=== PATIENT | female | born 1935 | race Caucasian/White ===

== ENCOUNTER → 2016-08-17 | Outpatient (CLI) | payer OTHER | LOC: BHFA 09:00 | PROVIDERS: ATTEND Internal Medicine Cardiovascular Disease | DX: R94.31 Abnormal electrocardiogram [ECG] [EKG] (principal); I25.10 Atherosclerotic heart disease of native coronary artery without angina pectoris; R06.09 Other forms of dyspnea ==

== ENCOUNTER → 2016-08-23 | Outpatient (CLI) | payer OTHER | LOC: CIMAGING 09:28 | DX: Z12.31 Encounter for screening mammogram for malignant neoplasm of breast (principal); Z80.3 Family history of malignant neoplasm of breast | CPT/HCPCS: G0202 ==

== ENCOUNTER → 2016-08-25 | Outpatient (CLI) | payer OTHER | LOC: BHFA 09:30 | PROVIDERS: ATTEND Internal Medicine Cardiovascular Disease | DX: R94.31 Abnormal electrocardiogram [ECG] [EKG] (principal); R06.09 Other forms of dyspnea; I25.10 Atherosclerotic heart disease of native coronary artery without angina pectoris | CPT/HCPCS: 78452; 93017; A9500; J2785 ==

== ENCOUNTER 2016-09-27 09:13 | Day surgery (SDC) | payer OTHER ==
[2016-09-27] MEDS ORDERED: FAMOTIDINE 20 MG TAB PO ONE (09:14)
[2016-09-27] MEDS ORDERED: diphenhydrAMINE 25 MG CAP PO ONE (09:14)
[2016-09-27] MEDS ORDERED: ASPIRIN EC 325 MG TAB PO ONE (09:14)
[2016-09-27] MEDS ORDERED: NS 1,000 ML IV ONE (09:14)
[2016-09-27] MEDS ORDERED: DIAZEPAM 5 MG TAB PO ONE (09:14)
--- NOTE | 2016-09-27 09:36 | CPEKG ---
Heart Rate: 60 RR Interval: 1000 P-R Interval: 140 QRSD Interval: 86 QT Interval: 440 QTC Interval: 440 P [place]: 54 QRS [place]: 6 T Wave [place]: -26 EKG Severity - ABNORMAL ECG - EKG Impression: SINUS RHYTHM EKG Impression: CONSIDER INFERIOR INFARCT EKG Impression: BORDERLINE T ABNORMALITIES, ANTERIOR LEADS Electronically Signed By: Todd Amaya 27-Sep-2016 19:11:57
[2016-09-27] MEDS ORDERED: fentaNYL 100 MCG/2 ML INJ ONE (09:56)
[2016-09-27] MEDS ORDERED: LIDOCAINE 1% 30 ML SDV ONE (09:56)
[2016-09-27] MEDS ORDERED: MIDAZOLAM 2 MG/2 ML VIAL ONE (09:56)
[2016-09-27] MEDS ORDERED: HEPARIN 10,000 UNIT/10 ML MDV ONE (09:56)
[2016-09-27] MEDS ORDERED: VERAPAMIL 5 MG/2 ML VIAL ONE (09:56)
[2016-09-27] MEDS ORDERED: IOPAMIDOL (ISOVUE-370) 150 ML BTL IV ONE (09:57)
[2016-09-27 10:07] LABS: % IMMATURE GRANULYOCYTES 0.2 % (0.0-1.1); ABSOLUTE IMMATURE GRANULOCYTES 0.01 10^3/uL (0.00-0.10); ADD DIFF? NO; ADD MORPH? NO; ADD SCAN? NO; ATYPICAL LYMPHOCYTE FLAG 0 (0-99); FRAGMENT RBC FLAG 10 (0-99); HEMATOCRIT 46.6 % (38.0-47.0); LEFT SHIFT FLG 0 (0-99); LIPEMIA HEMOLYSIS FLAG 90 (0-99); MEAN CELL HEMOGLOBIN CONCENTR. 34.3 g/dL (32.4-36.7); MEAN CELL VOLUME 93.2 fL (81.5-99.8); MEAN PLATELET VOLUME 10.2 fL (8.7-11.7); PLATELET CLUMPS FLAG 0 (0-99); PLATELET COUNT 191 10^3/uL (150-400); RED CELL DISTRIBUTION WIDTH 13.2 % (11.5-15.2)
[2016-09-27 10:10] LABS: INR 0.91 (0.83-1.16); PROTIME(PATIENT) 12.1 SEC (12.0-15.0)
[2016-09-27 10:31] LABS: ANION GAP 9 mEq/L (8-16); CALCIUM 9.5 mg/dL (8.5-10.4); CARBON DIOXIDE 27 mEq/l (22-31); CHLORIDE 104 mEq/L (97-110); CHOLESTEROL 218 mg/dL (140-220); CHOLESTEROL/HDL RATIO 2.04 RATIO (1.00-4.44); CREATININE 0.6 mg/dL (0.6-1.0); GLOMERULAR FILTRATION RATE > 60; GLUCOSE 100 mg/dL (70-100); HIGH DENSITY LIPOPROTEIN 107 mg/dL (40-85); LDL/HDL RATIO 0.86 RATIO (1.00-3.22); LOW DENSITY LIPOPROTEIN 92 mg/dL (80-100); MAGNESIUM 2.1 mg/dL (1.6-2.3); NON-HIGH DENSITY LIPOPROTEIN 111 mg/dL (90-129); POTASSIUM 4.2 mEq/L (3.5-5.2); SODIUM 140 mEq/L (134-144); TRIGLYCERIDE 95 mg/dL (35-135); VERY LOW DENSITY LIPOPROTEINS 19 mg/dL (8-25)
--- NOTE | 2016-09-27 11:52 | PDDXCAT ---
Diagnostic Cath Note - . Date: 09/27/16 Intervention: none *Procedure 1. selective coronary angiography 2. left heart catheterization 3. left ventriculogram Indication: CCS Class III angina pectoris, low-risk nuclear stress test with abnormal stress EKG, abnormal resting EKG, progressive dyspnea on exertion consistent with NYHA III symptoms. Access: Left radial artery (a plethysmography trace assisted Nigel's Test was used to document dual artery supply to the hand and index finger prior to access ). *Materials Left Heart Cath size: 5F Left Heart Cath materials: JL3.5, JR4.0, pigtail, short J-glide *Findings-Selective Coronary Angiography LM: The left main is ~5 mm in size and bifurcates into an LAD and circumflex system. There is no significant disease identified. LAD: The proximal LAD is ~3 mm in size with mild luminal irregularities consistent with atherosclerosis. There is TORRES III flow throughout. LCX: There proximal left circumflex is ~3 mm in size. There is no evidence of flow-limiting disease with TORRES III flow throughout. RCA: The proximal right coronary artery is ~3.5 mm in size and dominant (gives rise to PDA and PLV branches). There is a 30-40% ostial stenosis that is non- flow limiting. There is TORRES III flow throughout. The proximal portion is larger than the mid and distal artery and quickly tapers to a smaller size. *Findings-Left Heart Catheterization EDP: 25 mmHg LVEF: >75% AO: 120/61/87 mmHg LVG: There hyperdynamic LV systolic function with elevated ejection fraction without segmental wall motion abnormalities. The visualized portion of the thoracic aorta appears to be within normal limits in size without evidence of bennett dissection or aneurysm. *Summary Complications: None Estimated blood loss: <50ml Closure method: TR Band Assessment/Conclusion: 1. [place] vessel coronary artery disease that is non-flow limiting (maximal luminal stenosis of 30-40% in the ostial right coronary artery with TORRES III flow throughout). The patient's coronary artery disease should be managed medically. It is unlikely that [place] vessel coronary disease is significantly contributing to her dyspnea on exertion. 2. Hyperdynamic left ventricular systolic function and ejection fraction estimated to be >75%. 3. The patient had an episode of desaturation as low as 83% before the procedure and as low as 70% with conscious sedation. I would like her to have pulmonary evaluation including pulmonary CTA given the progressive dyspnea and periodic hypoxia at rest. Patient Problems: Problems Problem Status Onset Coronary artery disease Acute HTN (hypertension) Acute Hyperlipemia Acute - ICD10 Problem Qualifiers (1) Coronary artery disease Qualifiers: Coronary Disease-Associated Artery/Lesion type: [place] artery [place] vs. transplanted heart: [place] heart Associated angina: without angina Qualified Code(s): I25.10 - Atherosclerotic heart disease of [place] coronary artery without angina pectoris
[2016-09-27] MEDS ORDERED: IOPAMIDOL (ISOVUE 370) 100 ML BTL IV ONE (13:57)
[2016-09-27] MEDS ORDERED: fentaNYL 100 MCG/2 ML INJ IVP PRN (14:54)
== END 2016-09-27 20:37 | disposition home or self-care (01) ==
LOC: FCATH 09:13
PROVIDERS: ATTEND Internal Medicine Cardiovascular Disease
DX: I20.9 Angina pectoris, unspecified (principal); I10 Essential (primary) hypertension; G47.33 Obstructive sleep apnea (adult) (pediatric); E78.5 Hyperlipidemia, unspecified; Z86.73 Personal history of transient ischemic attack (TIA), and cerebral infarction without residual deficits
CPT/HCPCS: 71275; 93005; 93458; C1769; J1644; J2250; J3010; Q9967

== ENCOUNTER 2016-10-08 15:06 | Inpatient (IN) | payer OTHER ==
--- NOTE | 2016-10-08 15:19 | EDPHY ---
H & P Stated Complaint: tnigling to left side startedwith foot all gone HPI/ROS: CHIEF COMPLAINT: Tingling in left extremities and face HISTORY OF PRESENT ILLNESS: The patient is a 80 y/o female arriving with her complaining of four episodes of now resolved tingling in her left extremities, with the first episode occurring yesterday. In addition to CAD, hypertension, and emphysema, she has a history of a prior TIA two years ago that presented with right-sided facial paresthesias and difficulty walking. At that time she was hospitalized in underwent a full TIA evaluation. She recently underwent cardiac catheterization parentheses September 27, 2016) with a catheter placed in her left arm. No intervention was required. Yesterday she experienced two episodes of left foot tingling that progressed up to her left buttock, but quickly resolved. Twice today she developed the same symptoms in her left leg, but they then progressed through her left arm and the left side of her face. These episodes lasted about 1 minute and were not associated with headache, chest pain , worse than normal dyspnea, confusion, weakness, changes in vision, or changes in speech. She denies recent illness, vomiting, diarrhea, back pain, dysuria, abdominal pain, chest pain. She has no history of back injuries or prior back problems. She denies anticoagulant use. She denies recent trauma of any kind. She reports she is compliant with her medications. REVIEW OF SYSTEMS: A ten point review of systems was performed and is negative with the exception of the items mentioned in the HPI. Source: Patient Exam Limitations: No limitations - Personal History Current Tetanus/Diphtheria Vaccine: Yes Current Tetanus Diphtheria and Acellular Pertussis (TDAP): Yes - Medical/Surgical History PMH: PMH includes: 1. Coronary artery disease with non-flow limiting stenosis per cath 09/27/16 2. TIA - 2014 3. Emphysema requires home O2 - seen on chest CTA 09/27/16 4. Hypertension 5. Sleep apnea 6. Hysterectomy 7. Rotator cuff repair 8. Cataract surgery Prior medical records reviewed including admission 11/28/14 for TIA and cardiac cath report 09/27/16. Webmethods Architect: Dr. Monique Vazquez Asthma: No Hx Chronic Respiratory Disease: No Hx Diabetes: No Hx Cardiac Disease: No Hx Renal Disease: No Hx Cirrhosis: No Hx Alcoholism: No Hx HIV/AIDS: No Hx Splenectomy or Spleen Trauma: No Other PMH: 1. Coronary artery disease status post cardiac catheterization September 2016. 2. Hypertension. 3. Hyperlipidemia. 4. Sleep apnea. 5. COPD. 6. Hysterectomy. 7. Rotator cuff repair. 8. Cataract surgery - Social History Smoking Status: Never smoked Additional Social History: Former smoker. at bedside. - Physical Exam Exam: General Appearance: Alert. Vital signs reviewed. Blood pressure 157/89. Eyes: Pupils equal and round, no conjunctival injection, no discharge. Anicteric. ENT, Mouth: Mucous membranes are moist, no oropharyngeal erythema or edema. Neck: No lymphadenopathy, supple. No carotid bruits. Respiratory: Lungs are clear to auscultation; no wheezes, rales, or rhonchi. Cardiovascular: Regular rate and rhythm; no murmur, rub, or gallop. Gastrointestinal: Abdomen is soft and nontender, no masses or organomegaly, bowel sounds normal. Skin: Warm and dry, no rashes on exposed skin, normal color. Back: Nontender to palpation over the thoracolumbar spine. No CVAT. Extremities: No lower extremity edema, no calf tenderness or swelling. Neurological: Alert and oriented. Moving all four extremities easily and equally. Cranial nerves II through XII are examined and are intact with the exception of decreased hearing to finger rub in the right ear (visual acuity not tested). Strength is 5 over 5 bilaterally with testing of all major motor groups. Sensation is intact to light touch over all 4 extremities. Deep tendon reflexes are 2+ in the biceps bilaterally and 1+ in the knees bilaterally. [id number] is performed accurately. Psychiatric: Normal affect. Constitutional: Initial Vital Signs Temperature (C) 36.7 C 10/08/16 15:09 Heart Rate 68 10/08/16 15:09 Respiratory Rate 16 10/08/16 15:09 Blood Pressure 157/89 H 10/08/16 15:09 O2 Sat (%) 93 10/08/16 15:09 O2 Delivery Mode Room Air Allergies/Adverse Reactions: codeine Allergy (Verified 09/27/16 10:29) Vomiting/Nausea Home Medications: Medication Instructions Recorded Atorvastatin Calcium [Lipitor 40 40 mg PO DAILY 10/08/16 mg (*)] Clopidogrel Bisulfate [Plavix (*)] 75 mg PO DAILY 10/08/16 Herbals/Supplements -Info Only 1 ea PO DAILY 10/08/16 Hydrochlorothiazide [HCTZ (*)] 25 mg PO DAILY 10/08/16 Metoprolol Succinate Xr [Toprol Xl 12.5 mg PO DAILY 10/08/16 25 mg (*)] Multivitamins [Multivitamin (*)] 1 each PO DAILY 10/08/16 Naproxen Sodium [Aleve 220 MG (*)] 220 mg PO DAILY PRN 10/08/16 Medical Decision Making - Diagnostics Imaging Results: Imaging Impressions Head CT 10/08/16 15:39 Impression: 1. Minimal linear subarachnoid hemorrhage in the right frontoparietal convexity near the central sulcus without mass effect. 2. No midline shift or herniation. 3. Recommend MRI of the brain without and with contrast enhancement, if there is continued clinical concern. Findings and recommendations discussed with Emergency Department physician, TISH VARGAS at 16:31 hour, 10/08/2016. Final report concurs with initial preliminary interpretation. Imaging: Discussed imaging studies w/ call center professional Radiologist, I viewed and interpreted images myself ED Course/Re-evaluation: IV established. Labs drawn including CBC, CHEM. Head CT and EKG ordered. The 12 lead EKG was interpreted by myself. See hard copy and/or "tracemaster" electronic copy for interpretation. 1630: Dr. Mcintyre, radiologist, reports head CT shows small subarachnoid right cortical hemorrhage. Reassessed patient and discussed findings with her. She agrees with plan for admission. Brain MRI ordered. 1650: Spoke with hospitalist service. Dr. Pelaez accepts admission. 1657: Consulted with Dr. Montero, neurosurgery. He will review imaging and follow patient's admission as needed. 1705: Neurosurgery PA assessed patient with me in the ED. The patient is experiencing another episode of tingling in her left foot currently. Will admit to ICU, given stuttering and recurrent nature of her symptoms. She will be admitted to the ICU for blood pressure control and frequent neurologic monitoring. It is not clear what has caused this atraumatic subarachnoid hemorrhage. In the absence of Trauma other possibilities include aneurysmal bleed (unlikely in this location), vasculitis, venous angioma, hypertension, and coagulopathy. - Data Points Laboratory Results: Laboratory Results 10/08/16 16:00 10/08/16 16:00 10/08/16 10/08/16 16:00 16:00 WBC 4.97 10^3/uL 10^3/uL (3.80-9.50) RBC 4.72 10^6/uL 10^6/uL (4.18-5.33) Hgb 14.8 g/dL g/dL (12.6-16.3) Hct 43.8 % % (38.0-47.0) MCV 92.8 fL fL (81.5-99.8) MCH 31.4 pg pg (27.9-34.1) MCHC 33.8 g/dL g/dL (32.4-36.7) RDW 13.2 % % (11.5-15.2) Plt Count 180 10^3/uL 10^3/uL (150-400) MPV 9.8 fL fL (8.7-11.7) Neut % (Auto) 63.0 % % (39.3-74.2) Lymph % (Auto) 23.1 % % (15.0-45.0) [place] % (Auto) 10.5 % % (4.5-13.0) Eos % (Auto) 2.6 % % (0.6-7.6) Baso % (Auto) 0.6 % % (0.3-1.7) Nucleat RBC Rel Count 0.0 % % (0.0-0.2) Absolute Neuts (auto) 3.13 10^3/uL 10^3/uL (1.70-6.50) Absolute Lymphs (auto) 1.15 10^3/uL 10^3/uL (1.00-3.00) Absolute Monos (auto) 0.52 10^3/uL 10^3/uL (0.30-0.80) Absolute Eos (auto) 0.13 10^3/uL 10^3/uL (0.03-0.40) Absolute Basos (auto) 0.03 10^3/uL 10^3/uL (0.02-0.10) Absolute Nucleated RBC 0.00 10^3/uL 10^3/uL (0-0.01) Immature Gran % 0.2 % % (0.0-1.1) Immature Gran # 0.01 10^3/uL 10^3/uL (0.00-0.10) Sodium 141 mEq/L mEq/L (134-144) Potassium 3.6 mEq/L mEq/L (3.5-5.2) Chloride 101 mEq/L mEq/L (97-110) Carbon Dioxide 30 mEq/l mEq/l (22-31) Anion Gap 10 mEq/L mEq/L (8-16) BUN 18 mg/dL mg/dL (7-23) Creatinine 0.6 mg/dL mg/dL (0.6-1.0) Estimated GFR > 60 Glucose 88 mg/dL mg/dL (70-100) Calcium 9.6 mg/dL mg/dL (8.5-10.4) Medications Given: Discontinued Medications Lorazepam (Ativan Injection) 1 mg IVP EDNOW ONE Stop: 10/08/16 17:57 Last Admin: 10/08/16 18:04 Dose: 1 mg Departure - Departure Disposition: [facility] Inpatient Acute Clinical Impression: Subarachnoid hemorrhage, right cortical, Paresthesias Condition: Fair Report Scribed for: Tish Vargas Report Scribed by: Fifi Crocker Date of Report: 10/08/16 Time of Report: 15:23 Physician Review and Approval Statement: 10/08/16 15:19 Portions of this note were transcribed by the manager medical writing. I, Dr. Tish Vragas, personally performed the history, physical exam, and medical decision- making; and confirmed the accuracy of the information in the transcribed note.
[2016-10-08 16:07] LABS: % IMMATURE GRANULYOCYTES 0.2 % (0.0-1.1); ABSOLUTE IMMATURE GRANULOCYTES 0.01 10^3/uL (0.00-0.10); ADD DIFF? NO; ADD MORPH? NO; ADD SCAN? NO; ATYPICAL LYMPHOCYTE FLAG 10 (0-99); FRAGMENT RBC FLAG 0 (0-99); HEMATOCRIT 43.8 % (38.0-47.0); HEMOGLOBIN 14.8 g/dL (12.6-16.3); LEFT SHIFT FLG 0 (0-99); LIPEMIA HEMOLYSIS FLAG 90 (0-99); MEAN CELL HEMOGLOBIN 31.4 pg (27.9-34.1); MEAN CELL HEMOGLOBIN CONCENTR. 33.8 g/dL (32.4-36.7); MEAN CELL VOLUME 92.8 fL (81.5-99.8); MEAN PLATELET VOLUME 9.8 fL (8.7-11.7); PLATELET CLUMPS FLAG 0 (0-99); PLATELET COUNT 180 10^3/uL (150-400); RED BLOOD CELL COUNT 4.72 10^6/uL (4.18-5.33); RED CELL DISTRIBUTION WIDTH 13.2 % (11.5-15.2)
--- NOTE | 2016-10-08 16:15 | CPEKG ---
Heart Rate: 56 RR Interval: 1071 P-R Interval: 156 QRSD Interval: 84 QT Interval: 440 QTC Interval: 425 P [place]: 47 QRS [place]: 11 T Wave [place]: 35 EKG Severity - BORDERLINE ECG - EKG Impression: SINUS RHYTHM EKG Impression: BORDERLINE INFERIOR Q WAVES Electronically Signed By: Lin Vargas 09-Oct-2016 00:15:29
[2016-10-08 16:32] LABS: ANION GAP 10 mEq/L (8-16); CALCIUM 9.6 mg/dL (8.5-10.4); CARBON DIOXIDE 30 mEq/l (22-31); CHLORIDE 101 mEq/L (97-110); CREATININE 0.6 mg/dL (0.6-1.0); GLOMERULAR FILTRATION RATE > 60; GLUCOSE 88 mg/dL (70-100); POTASSIUM 3.6 mEq/L (3.5-5.2); SODIUM 141 mEq/L (134-144)
[2016-10-08] MEDS ORDERED: NS 1,000 ML IV SCH (17:30)
[2016-10-08] MEDS ORDERED: niCARdipine/NACL 200 ML IV SCH (17:30)
[2016-10-08] MEDS ORDERED: LORazepam 2 MG/ML INJ IVP ONE (17:56)
--- NOTE | 2016-10-08 18:18 | GHP ---
[f rep st] HISTORY AND PHYSICAL DATE OF ADMISSION: 10/08/2016 CHIEF COMPLAINT: Left-sided numbness. HISTORY OF PRESENT ILLNESS: This is a 80-year-old female with a history of coronary artery disease on Plavix, who presents with left-sided numbness. This started yesterday in her foot. Yesterday it progressed up to her left buttock but got better. It then resolved. Today, she had similar sympto ms in her left foot in addition to her left hand as well as the left side of her face. She has had a TIA before so she looked in the mirror and did not see any facial droop. She denies any confusion , headache, recent falls, or any other weakness. She does not use any other anticoagulants other th an Plavix. PAST MEDICAL/SURGICAL HISTORY: 1. Coronary artery disease, nonobstructive, no interventions taken, cath earlier this month on Plav ix. 2. History of TIA in 2014. 3. History of COPD, recently started on nocturnal O2. 4. MARCELA on CPAP. 5. Hypertension. 6. Hysterectomy. 7. Rotator cuff repair. 8. Cataract surgery. MEDICATIONS: Please see medication reconciliation. ALLERGIES: Codeine makes her feel nauseous. SOCIAL HISTORY: She lives with her . She drinks 1 glass of wine a night. She quit smoking. FAMILY HISTORY: Mother had CHF. REVIEW OF SYSTEMS: A 10-point Review of Systems is conducted and is negative except per HPI. PHYSICAL EXAM: VITAL SIGNS: Blood pressure 169/89, heart rate 69, respiration rate 16, satting 92% on room air. Temperature is 36.7. GENERAL: The patient is a pleasant female, who appears comfort able, in no acute distress. HEENT: Normocephalic, atraumatic. CARDIOVASCULAR: Regular rate and r hythm. No murmurs, rubs, or gallops. PULMONARY: Lungs clear to auscultation bilaterally. ABDOMEN : Soft, nontender, nondistended. SKIN: No rash. : No Mora. NEUROLOGIC: Alert and oriented x3. Cranial nerves 2-12 are intact. Motor is intact in her upper and lower extremities. Sensation to light touch is normal in her upper extremity and her face. It is abnormal in her left lower ext remity in her foot. PSYCHIATRIC: Normal mood and affect. LABS: CBC is normal. Platelets are 180. Basic metabolic panel is normal. DATA: 1. I discussed this with Dr. Vargas as well as Dr. Vanegas. Will admit to the ICU. 2. I personally viewed and interpreted her head CT. It shows a small intraparenchymal hemorrhage o n the right side, just cortical. 3. ECG, which I personally viewed and interpreted, shows sinus rhythm. Q-waves in II, III, and aVF . IMPRESSION AND PLAN: This is a 80-year-old female with a small cortical intracranial hemorrhage. 1. Intracranial hemorrhage: Neurosurgery is involved. Recommend MRI with MRA to rule out aneurysm . I have placed orders for nicardipine drip to tightly control her blood pressure. Otherwise, I tolbert ve placed therapy orders. Discussed with Neurosurgery, will hold off on platelet transfusion now al though she is on Plavix. If she worsens, certainly platelets and DDAVP would be appropriate. We wi ll place in the ICU and get q.2 neuro checks overnight. I have ordered Keppra to rule out seizure a ctivity causing her neurologic symptoms. I have also placed a next-day Neurology consult. 2. Coronary artery disease: When she passes her swallow study, we will give her metoprolol. Will hold Plavix. 3. Hypertension: She will need p.o. medications when she is taking p.o. For now, she will be on n icardipine. 4. Chronic obstructive pulmonary disease: We will provide oxygen as needed. 5. Obstructive sleep apnea. 6. Code status: She would like to be do not resuscitate. She and her have had this conver sation before and she fully understands its implications. 7. Venous thromboembolism risk is high. I will order her SCDs. /[id number]/MODL
[2016-10-08] MEDS ORDERED: GADOBUTROL 10 ML VIAL IVP ONE (18:32)
--- NOTE | 2016-10-08 18:48 | GCON ---
[f rep st] CONSULTATION DATE OF CONSULTATION: 10/08/2016 REASON FOR CONSULTATION: Evidence of a small spontaneous subarachnoid hemorrhage with left-sided nu mbness and tingling. HOSPITAL COURSE, HISTORY, AND MAJOR MEDICAL FINDINGS: The patient is a 80-year-old female, who had presented to [facility] after having intermittent tingling occur in her face, her left arm and he r left leg. She states that these episodes happen intermittently and are coming on spontaneously bu t they are short lived, only lasting a few seconds. She does have a past medical history that is si gnificant for coronary artery disease, hypertension, emphysema and a prior history of a TIA 2 years ago that presented with right-sided facial paralysis and difficulty walking. She denies any headach es, nausea, vomiting, dizziness, changes in vision or speech. She denies any head trauma or hitting her head at all recently. She denies also any weakness. REVIEW OF SYSTEMS: Negative other than what is stated in the HPI. Please see for pertinent negativ es and pertinent positives. PAST MEDICAL HISTORY: Significant for coronary artery disease, hypertension, emphysema, history of a prior TIA, history of sleep apnea, history of . PAST SURGICAL HISTORY: Significant for cardiac cath, history of rotator cuff repair, history of hys terectomy and history of cataract surgery. SOCIAL HISTORY: Patient is . She is a prior smoker. She quit approximately 10 years ago. She drinks a glass of wine daily. ALLERGIES: To codeine. HOME MEDICATIONS: Include Lipitor 40 mg 1 p.o. daily, multivitamins, HCTZ 25 mg 1 p.o. daily, Aleve 220 mg 1 p.o. daily, Plavix 75 mg p.o. daily, Toprol 12.5 mg 1 p.o. daily, [place]-3 fish oil 2000 un its p.o. daily. FAMILY HISTORY: The patient has a strong family history of both CVAs and coronary artery disease. PHYSICAL EXAMINATION: VITAL SIGNS: Blood pressure is 168/89. Her pulse is 69. Her respiratory ra te is 16. She is 92% on room air. Temp is 36.7. GENERAL: The patient is in no acute distress. She is alert and oriented x3. Answers questions navid ropriately. Affect is appropriate to given situation. NEUROLOGIC: Cranial nerves 2-12 are grossly intact. EOMI. PERRLA. Patient is a 5/5 and equal in her bilateral upper and bilateral lower extremities including her deltoids, triceps, biceps, wrist f lexors, extensors, interossei, intrinsic data migration consultant, iliopsoas hamstrings, quadriceps, plantar flexion, do rsiflexion, EHL. Sensation is intact in bilateral upper and bilateral lower extremities. DIAGNOSTIC REVIEW: Patient underwent a head CT which demonstrated a minimal linear subarachnoid hem orrhage in the right frontal parietal convexity near the central sulcus without mass effect. ASSESSMENT AND PLAN: The patient is a 80-year-old female, who presented to [facility] emerge ncy room with intermittent numbness and tingling down the entire left side of her body. Her head CT demonstrated a small focus of spontaneous subarachnoid hemorrhage. This was discussed in detail with both Dr. Vanegas and our vascular specialist, Dr. Montero. At this p oint in time, we will order an MRA as well as an MRI with and without contrast to further evaluate t he etiology of the source. At this point in time, given her hypertension, we would like to maintain her systolic blood pressure less than 140. She will be admitted to the ICU with q.2 hour neuro shanique cks so we can frequently monitor her. Further recommendations to follow after imaging has resulted. /[id number]/MODL
[2016-10-08] MEDS: levETIRAcetam 750 MG in NS 100 ML IV SCH (22:50)
[2016-10-09 03:19] LABS: ADD DIFF? NO; ADD MORPH? NO; ADD SCAN? NO; ATYPICAL LYMPHOCYTE FLAG 0 (0-99); FRAGMENT RBC FLAG 0 (0-99); HEMATOCRIT 40.7 % (38.0-47.0); HEMOGLOBIN 13.5 g/dL (12.6-16.3); LEFT SHIFT FLG 0 (0-99); LIPEMIA HEMOLYSIS FLAG 80 (0-99); MEAN CELL HEMOGLOBIN 31.2 pg (27.9-34.1); MEAN CELL HEMOGLOBIN CONCENTR. 33.2 g/dL (32.4-36.7); PLATELET CLUMPS FLAG 0 (0-99); PLATELET COUNT 157 10^3/uL (150-400); RED BLOOD CELL COUNT 4.33 10^6/uL (4.18-5.33); RED CELL DISTRIBUTION WIDTH 13.1 % (11.5-15.2)
[2016-10-09 03:35] LABS: ALANINE AMINOTRANSFERASE 35 IU/L (9-52); ALBUMIN 3.6 g/dL (3.5-5.0); ALKALINE PHOSPHATASE 54 IU/L (38-126); ANION GAP 6 mEq/L (8-16); ASPARTATE AMINOTRANSFERASE 25 IU/L (14-46); BILIRUBIN,TOTAL 0.8 mg/dL (0.1-1.4); CALCIUM 8.7 mg/dL (8.5-10.4); CARBON DIOXIDE 27 mEq/l (22-31); CHLORIDE 107 mEq/L (97-110); CREATININE 0.6 mg/dL (0.6-1.0); GLOMERULAR FILTRATION RATE > 60; GLUCOSE 95 mg/dL (70-100); POTASSIUM 3.7 mEq/L (3.5-5.2); SODIUM 140 mEq/L (134-144); TOTAL PROTEIN 6.5 g/dL (6.3-8.2)
--- NOTE | 2016-10-09 09:52 | NEUSURGPN ---
Assessment/Plan: A: 80 yo F with intermittent left arm/leg numbness. CT head with small SAH, no trauma P: -MRA and MRI reviewed - no aneursysm. 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 Subjective: Pt resting in bedside chair. Feeling ok. Objective: AAOx3 NAD VSS MAEx4 Motor 5/5 BUE/BLE CN II-XII Urinary Catheter in Place: No - Physician Discussed Patient with : [facility] Physical Exam - Vitals, I&O, Labs I and O 10/08/16 10/09/16 10/10/16 05:59 05:59 05:59 Intake Total 1017 Balance 1017 Weight 72.57 kg Intake: Oral (ml) 480 IV Intake (ml) 485 IV Infused (ml) 52 niCARdipine/NACL 200 ml @ 42 Titrate IV CONT CARMEL Rx#: [id number] Other: Number of Voids Toilet 1 Vital Signs Temp Pulse Resp BP Pulse Ox 36.6 C 57 L 12 123/56 H 94 10/09/16 08:00 10/09/16 08:00 10/09/16 08:00 10/09/16 08:00 10/09/16 08:00 Laboratory Results 10/09/16 03:10 10/09/16 03:10 ICD10 Worksheet Patient Problems: Problems Problem Status Onset Paresthesias Acute Subarachnoid hemorrhage Acute Coronary artery disease Acute HTN (hypertension) Acute Hyperlipemia Acute
[2016-10-09] MEDS: levETIRAcetam 750 MG in NS 100 ML IV SCH (10:04)
[2016-10-09] MEDS: METOPROLOL SUCCINATE XR 25 MG TAB PO SCH (10:05)
[2016-10-09] MEDS: HYDROCHLOROTHIAZIDE 25 MG TAB PO SCH (10:05)
--- NOTE | 2016-10-09 14:20 | GCON ---
[f rep st] CONSULTATION NEUROLOGY CONSULT. DATE OF CONSULTATION: 10/09/2016 REFERRING PHYSICIAN: Oliver Pelaez MD BILLING INFORMATION: Seventy total minutes floor time today, reviewing records from 2015, and testing from this hospitalization along with images and direct counseling with the patient and her family, regarding diagnosis and plan of care. HISTORY OF PRESENT ILLNESS: The patient is a very pleasant 80-year-old lady with a past medical history, including nonobstructive coronary artery disease from a catheterization done just last Tuesday, and recently diagnosed COPD, recently started oxygen therapy, just in the last week as well. She also has obstructive sleep apnea. She had a TIA, characterized by right-sided numbness in 2014, and was seen by Dr. Porter at that time. I reviewed those records. There was no etiology found and she was put on Plavix daily therapy. With this hospitalization, the patient began having left foot numbness 48 hours ago, when she woke up in the morning. These symptoms wax and waned, and started spreading over geographic distribution to the left face, arm and leg. Because of this, she called her family, who are in healthcare, who advisory her to come for emergent evaluation. She came to the ER yesterday evening, and on initial head CT, there was a very small amount of linear subarachnoid hemorrhage in the right frontoparietal convexity near the central sulcus. She had an MRI brain confirming this finding, on susceptibility weighted images, there was no other areas of microhemorrhage to suggest previous amyloid angiopathy. She does have some chronic microvascular changes, but otherwise, no other explanation. Finally, she had an MRA of the head, which showed no aneurysm or other vascular malformations. There was no sign of venous thrombosis noted. She was seen by Neurosurgery, who has been following. Her evaluation in 2015 for the TIA included a negative thrombophilia panel. The patient adamantly denies any history of head trauma in the recent past to implicate a traumatic subarachnoid hemorrhage. REVIEW OF SYSTEMS: A 10-point review of system was done and only pertinent to HPI. Her past medical history, social history, family history, home medications, allergies, please see Dr. Pelaez's history and physical. PHYSICAL EXAM: VITAL SIGNS: Blood pressure 127/89, temperature 36.7, heart rate 60 and regular, O2 sats ranging from 92% to 99%. NEURO: Higher mental function: Awake and alert. No aphasia. Cranial nerves: Normal 2 through 7, 11 , and 12. She had no sensory deficit at the time of testing. On motor exam, she did have 4/5 weakness in the left upper extremity with external rotation, otherwise, her motor exam was normal. Sensory: She denied any deficits to light touch during initial examination, but after physical therapy walked her, she did have recurrent numbness in the distal lower left extremity. Coordination was normal in upper and lower extremities. Per PT, her gait was somewhat abnormal with her left leg intermittently buckling at the knee. IMPRESSION AND PLAN: #1 Non-aneurysmal, nontraumatic, subarachnoid hemorrhage. The patient's clinical history and neuroimaging thus far, is consistent with a nontraumatic, non-aneurysmal subarachnoid hemorrhage. These patients tend to have a good prognosis based on the scientific literature. There are no other secondary causes visualized on imaging thus far, such as amyloid angiopathy, cerebral sinovenous thrombosis, history of sickle cell disease etc. She has no clinical or imaging features of vasculitis. She has had no seizures. Anticonvulsants can be discontinued. I did speak to Saranya Springer from [facility], who is working with Dr. Montero on this case. They agree with holding Plavix until she has a transfemoral angiogram with Dr. Montero, tentatively scheduled for early next week. Conventional angiography is recommended for non-aneurysmal, nontraumatic subarachnoid hemorrhages to exclude any small occult aneurysms. The patient is agreeable to hold Plavix. Finally, we did have physical therapy evaluate the patient for disposition. She does have some waxing and waning sensory and motor deficits, which will likely improve dramatically each day as the blood resorbs. Therefore, we will keep her one more night and tentatively plan to discharge home tomorrow with home therapy and outpatient physical therapy. No further recommendations now. Thank you for this consultation. /[id number]/MODL MTDD
[2016-10-09] MEDS: TIOTROPIUM INHALER 18 MCG/DOSE 5 DOSE/MDI IH SCH (14:24)
--- NOTE | 2016-10-09 14:40 | GCON ---
[f rep st] CONSULTATION CRITICAL CARE CONSULT. DATE OF CONSULTATION: 10/09/2016 HISTORY OF PRESENT ILLNESS: The patient is a 80-year-old female who had a history of what was thoug ht to be a TIA in 2014 and has nonobstructive coronary disease, both resulting in treatment with Zoë vix. She presented yesterday with left-sided numbness in her lower extremity. It started in her teresa t and progressed to upper leg, but did seem to resolve. She continued to have symptoms; however, in her left hand and left face. Because of her history, she came to the emergency department where a head CT revealed a right-sided small subarachnoid hemorrhage. She has had no trauma, though she has had dyspnea on exertion over t he past year and has undergone a recent extensive workup. That workup included a cardiac catheteriz ation and a chest CT angiogram and a cardiac workup that was otherwise negative. She was seen at [facility] on September 29, 2016 and was given the preliminary diagnosis of COPD based on her CT scan findings, although pulmonary function tests have not yet been found. She w as also found to be chronically hypoxic but had a normal hematocrit. She has had a known diagnosis of obstructive sleep apnea and when she was seen at [facility] there was a review of her data download card from the most recent 90 day period, showing only 58% of the time she was using CPAP for at least 4 hours nightly and she reported being off it at le ast once a week. When she was using CPAP her apnea-hypopnea index was normal and she reports it being fairly well con trolled. In any case, there is no history of cerebral aneurysms, either in her or her family and no trauma and no poorly-controlled hypertension as she is followed fairly closely on antihypertensive medications. She has no chronic arrhythmias as well. REVIEW OF SYSTEMS: Otherwise negative. PAST MEDICAL HISTORY: 1. Includes the TIA as described above. 2. The COPD presumptive diagnosis. 3. Chronic hypoxemia. 4. Obstructive sleep apnea with an apnea-hypopnea index at baseline of about 40, which appears to b e relatively controlled when she is using CPAP. 5. Hypertension. 6. Hyperlipidemia. 7. Diverticulosis. PAST SURGICAL HISTORY: Includes a hysterectomy, rotator cuff surgery and cataract repair. SOCIAL HISTORY: She had has smoked for a total of about 50 years, quarter to a half pack a day off and on over that period of time. No significant alcohol or IV drug use. FAMILY HISTORY: Otherwise noncontributory. MEDICATIONS: At the time of admission include Naprosyn, multivitamin, metoprolol, hydrochlorothiazi de, herbal supplements, Plavix and atorvastatin. Her current medication list includes Lipitor, hydrochlorothiazide, Keppra, metoprolol and normal zoya ine. PHYSICAL EXAMINATION: VITAL SIGNS: She was afebrile. Her blood pressure is 127/89, heart rate of 57, respiratory rate of 14, oxygen saturation 94% on room air. GENERAL: She is a very pleasant wom an in no apparent distress, able to speak in full sentences without using accessory muscles for haritha thing. HEENT: Pupils were equally round and reactive to light. Nonicteric and noninjected. Mucou s membranes are moist without erythema or exudate. NECK: Supple without adenopathy or jugular vein distention. LUNGS: Breath sounds were clear to auscultation bilaterally without wheezes, rubs or r ales. HEART: Had a regular rate and rhythm without obvious murmurs, rubs or gallops. ABDOMEN: So ft, nontender, nondistended without hepatosplenomegaly. EXTREMITIES: No clubbing, cyanosis, or rambo ma. There may been some minor left lower extremity weakness which was difficult to test; however, s he did say she was feeling quite weak on her left side and thought that she might lose her balance. NEUROLOGIC: Otherwise nonfocal neuro exam. SKIN: Warm and dry and without evidence of rash. OBJECTIVE DATA: Includes a head CT, as described above. She has also had an MRI and MRA that showe d no vascular abnormalities. An EKG was unremarkable. Her white count was 3.5 with hematocrit 40.7 and platelets of 157. Basic metabolic panel and liver f unction tests were essentially normal. ASSESSMENT/PLAN: 1. Subarachnoid hemorrhage of uncertain etiology. It is feasible that her chronic at least intermi ttent hypoxemia related to suboptimally controlled sleep apnea is certainly a contributor. 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 The chronic hypoxemia may create preconditioning of cerebral v ascular blood vessels, resulting in vasospasm and subsequent bleeding. In any case, she seems to be quite stable. Dr. Mcintosh has seen her from Neurology and she is appears to be relatively stable at th is time. She will get another head CT tomorrow morning to make sure there is no progression of dise ase and if her symptoms and CT are normal, she will likely be discharged home and be followed up wit h angiography by Dr. Montero at a later date. 2. Chronic obstructive pulmonary disease which is a presumed diagnosis. She certainly has emphysem a on her CT scan, but no inhalers as of yet. I will start her on some Spiriva today as a trial to s ee how well she does. It is certainly encouraging that she is on room air at this time and eventual ly she will need pulmonary function tests, but I think I would like to see her recover from her suba rachnoid hemorrhage before pursuing that diagnosis. 3. Sleep apnea. I encouraged her bring her device to the hospital and get her started with this as soon as possible. 4. Hypertension. This appears to be well controlled at this time and will continue her current med ications though we should be cautious about her heart rate which is on the relatively slow side, but is otherwise hemodynamically insignificant. /[id number]/MODL
--- NOTE | 2016-10-09 16:00 | HOSPPROG ---
Hospitalist Progress Note Assessment/Plan: * Subarachnoid hemorrhage -no trauma, aneurysm or other underlying cause found -transfemoral angiogram with neurosurgery next week -eval for occult aneurysm * HTN - off cardene gtt * MARCELA/COPD - CPAP/O2 at night * TIA/CAD - hold Plavix 5 days and until angiogram Subjective: Some changes in numbness pattern. Objective: Vital Signs Temp Pulse Resp BP Pulse Ox 36.7 C 51 L 15 120/97 H 90 L 10/09/16 12:00 10/09/16 14:00 10/09/16 14:00 10/09/16 14:00 10/09/16 14:00 Laboratory Results 10/09/16 03:10 10/09/16 03:10 10/08/16 10/09/16 10/10/16 05:59 05:59 05:59 Intake Total 1017 820 Balance 1017 820 d/w Dr. Doran ICU rounds - unclear cause of hemorrhage MRA brain - no aneurysm - Physical Exam Constitutional: no apparent distress, appears nourished, not in pain Cardiovascular: regular rate and rhythym, no murmur, rub, or gallop Respiratory: no respiratory distress, no rales or rhonchi, clear to auscultation Gastrointestinal: normoactive bowel sounds, soft, non-tender abdomen, no palpable masses Skin: no rashes or abrasions, no fluctuance, no induration Neurologic: AAOx3, sensation intact bilaterally Psychiatric: interacting appropriately, not anxious, not encephalopathic, thought process linear ICD10 Worksheet Patient Problems: Problems Problem Status Onset Paresthesias Acute Subarachnoid hemorrhage Acute Coronary artery disease Acute HTN (hypertension) Acute Hyperlipemia Acute
[2016-10-10 08:13] VITALS: BP 116/63; PULSE 57; RESP 16; TEMP 97.6; O2SAT 97
[2016-10-10] MEDS: METOPROLOL SUCCINATE XR 25 MG TAB PO SCH (08:16)
[2016-10-10] MEDS: HYDROCHLOROTHIAZIDE 25 MG TAB PO SCH (08:17)
[2016-10-10] MEDS ORDERED: ATORVASTATIN CALCIUM 40 MG TAB PO SCH (09:00)
--- NOTE | 2016-10-10 09:35 | NEUSURGPN ---
Assessment/Plan: A: 80 yo F with intermittent left arm/leg numbness. CT head with small SAH, no trauma P: -MRA and MRI reviewed - no aneursysm. SAH is visualized, no clear source without recent trauma. 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 -OK to resume plavix in 5 days from NS standpoint -OK for DC from NS standpoint -D/w Dr Montero Subjective: Pt resting in bed, states her sensation has improved and she feels she is back to "normal" Objective: AAOx3 NAD VSS CN II-XII grossly intact no droop MAEx4 Motor 5/5 BLE Urinary Catheter in Place: No - Physician Discussed Patient with : [facility] Physical Exam - Vitals, I&O, Labs I and O 10/09/16 10/10/16 10/11/16 05:59 05:59 05:59 Intake Total 1017 1070 Balance 1017 1070 Weight 72.57 kg Intake: Oral (ml) 480 1070 IV Intake (ml) 485 IV Infused (ml) 52 niCARdipine/NACL 200 ml @ 42 Titrate IV CONT CARMEL Rx#: [id number] Other: Number of Voids Toilet 1 1 Vital Signs Temp Pulse Resp BP Pulse Ox 36.4 C 57 L 16 116/63 97 10/10/16 08:12 10/10/16 08:16 10/10/16 08:12 10/10/16 08:17 10/10/16 08:12 Laboratory Results 10/09/16 03:10 10/09/16 03:10 ICD10 Worksheet Patient Problems: Problems Problem Status Onset Paresthesias Acute Subarachnoid hemorrhage Acute Coronary artery disease Acute HTN (hypertension) Acute Hyperlipemia Acute
[2016-10-10] MEDS: TIOTROPIUM INHALER 18 MCG/DOSE 5 DOSE/MDI IH SCH (10:11)
--- NOTE | 2016-10-10 12:49 | NEUROPROG ---
Assessment: 1. Tiny non-aneurysmal, non-traumatic subarachnoid hemorrhage (right frontal) Repeat head CT without contrast shows tiny subarachnoid hemorrhage is stable. Symptoms have almost completely resolved. No secondary cause found such as aneurysm, other vascular malformations, amyloid angiopathy or sign of venous thrombosis. Per Neurosurgery, she will hold Plavix for 5 days then resume for vascular prophylaxis. She will follow-up with Neurosurgery Tuesday to discuss transfemoral angiography to exclude any occult small aneurysm. She can discharge home from my standpoint with home physical therapy. No further recommendations. Please do not hesitate to call for any questions or changes in neurologic status. Subjective: Symptoms have essentially resolved Objective: Vital Signs Temp Pulse Resp BP Pulse Ox 36.4 C 57 L 16 116/63 97 10/10/16 08:12 10/10/16 08:16 10/10/16 08:12 10/10/16 08:17 10/10/16 08:12 Laboratory Results 10/09/16 03:10 10/09/16 03:10 10/09/16 10/10/16 10/11/16 05:59 05:59 05:59 Intake Total 1017 1070 Balance 1017 1070 Awake and alert, no aphasia 4/5 weakness in left upper extremity external rotator Otherwise motor exam is normal Sensory exam is normal Allergies/Adverse Reactions: codeine Allergy (Verified 09/27/16 10:29) Vomiting/Nausea
--- NOTE | 2016-10-10 13:38 | PDIAF ---
- Diagnosis Diagnosis: subarachnoid hemorrhage Code Status: Do Not Resuscitate - Medication Management Discharge Medications: Medications to Continue on Transfer Atorvastatin Calcium [Lipitor 40 mg (*)] 40 mg PO DAILY 10/08/16 [Last Taken ] Herbals/Supplements -Info Only 1 ea PO DAILY 10/08/16 [Last Taken Unknown] Hydrochlorothiazide [HCTZ (*)] 25 mg PO DAILY 10/08/16 [Last Taken 10/08/16] Metoprolol Succinate Xr [Toprol Xl 25 mg (*)] 12.5 mg PO DAILY 10/08/16 [Last Taken 10/08/16] Multivitamins [Multivitamin (*)] 1 each PO DAILY 10/08/16 [Last Taken 10/08/16] Discharge Medications: Refer to the Discharge Home Medication list for PRN reason. - Orders Services needed: Home Care, Physical Therapy, Occupational Therapy Home Care Face to Face: I certify that this patient was under my care and that I had the required [id number] encounter meeting the encounter requirements on the discharge day. My findings support the fact that the patient is homebound as defined in CMS Chapter 7 Medicare Benefits Manual 30.1.1, The condition of the patient is such that there exists a normal inability to leave home and consequently, leaving home would require a considerable and taxing effort. Diet Texture: Regular Texture Diet, Thin Liquids - Follow Up Care Current Providers and Referrals: Aisha Joyner MD [Primary Care Provider] - As per Instructions Deric Montero MD [Medical Doctor] -
--- NOTE | 2016-10-10 17:39 | GDS ---
[f rep st] DISCHARGE SUMMARY DISCHARGE DIAGNOSES: 1. Subarachnoid hemorrhage, without trauma or aneurysm. 2. Hypertension. 3. Obstructive sleep apnea, on CPAP. 4. Chronic obstructive pulmonary disease, wearing oxygen at night. 5. History of transient ischemic attack. 6. History of coronary artery disease. HISTORY: The patient is a 80-year-old female who presented with left-sided numbness to her lower ex tremity that progressed up to her left hand and left side of her face. There was no weakness. She is chronically on Plavix for a previous TIA and coronary artery disease. Head CT showed a linear gonzalez barachnoid hemorrhage in the right frontoparietal convexity without mass effect. Neurosurgery was c onsulted. MRA of the brain was negative for aneurysm in the [place]. A followup head CT w as unchanged. She was stable for discharge home. Neurosurgery has cleared her to resume her Plavix in 5 days. She was also seen by Neurology, Dr. Mcintosh. He recommends a transfemoral angiography to e xclude an occult small aneurysm. She will follow up with Neurosurgery, Dr. Montero, to discuss procee ding. She is not sure if she wants to be aggressive on this front. DISCHARGE MEDICATIONS: Please see computerized record for full detailed list. There are no new med ications given at the time of hospital discharge. ADDITIONAL DISCHARGE INSTRUCTIONS: 1. Okay to restart Plavix in 5 days. 2. Follow up with Dr. Montero of Neurosurgery to consider outpatient cerebral aneurysm to evaluate fo r occult aneurysm. 3. Outpatient PT/OT. Greater than 30 minutes' time was spent arranging this discharge. Patient was seen and examined by me on the day of discharge. /[id number]/MODL
== END 2016-10-10 15:33 | disposition home health service (06) | DRG 66 ==
LOC: F2N 19:26 → F3N 10-09 16:59
PROVIDERS: ADMIT Student in an Organized Health Care Education/Training Program; ATTEND Student in an Organized Health Care Education/Training Program
DX: I60.9 Nontraumatic subarachnoid hemorrhage, unspecified (principal); I25.10 Atherosclerotic heart disease of native coronary artery without angina pectoris; I10 Essential (primary) hypertension; J44.9 Chronic obstructive pulmonary disease, unspecified; Z99.81 Dependence on supplemental oxygen; G47.33 Obstructive sleep apnea (adult) (pediatric); Z87.891 Personal history of nicotine dependence; R09.02 Hypoxemia
CPT/HCPCS: 92523-GN; 97110-GP; 97116-GP; 97162-GP; 97165-GO; 97535-GO; A9585; G8978-GP-CK; G8979-GP-CJ; G8987-GO-CK; G8988-GO-CI; G8989-GO-CI; G9165-GN-CI; G9166-GN-CH; J1953; J2060

== ENCOUNTER → 2016-10-14 | Outpatient (CLI) | payer OTHER | LOC: CIMAGING 09:19 | PROVIDERS: ATTEND Internal Medicine | DX: I60.9 Nontraumatic subarachnoid hemorrhage, unspecified (principal) | CPT/HCPCS: 70450-PO ==